=== PATIENT | male | born 1995 | race Caucasian/White ===

== ENCOUNTER 2017-10-08 09:39 | Emergency (ER) | payer OTHER ==
[~2017-10-08] VITALS: Ht 175.2 cm; Wt 88.5 kg
[~2017-10-08 09:39] MED LIST: ANUSOL-HC25 MG RC; MIRALAX POWDER17 G1 PO; MOTRIN400 MG PO; NAPROSYN500 MG PO; NKHM; TYLENOL W/CODEI1 TA2 PO
[2017-10-08 10:09] LABS: HEMATOCRIT 43.4 % (42.0-52.0); HEMOGLOBIN 14.7 g/dl (14.0-18.0); MEAN CELL VOLUME 83.8 fl (80.0-94.0); MEAN CORPUSCULAR HGB 28.4 pg (27.0-31.0); MEAN CORPUSCULAR HGB CONC 33.9 g/dl (33.0-37.0); MEAN PLATELET VOLUME 10.4 fl (9.6-12.3); PLATELET COUNT AUTOMATED 179 10*3/uL (130-400); RED BLOOD COUNT 5.18 10*6/uL (4.50-5.90); RED CELL DISTRI WIDTH 11.9 % (0-14.5); WHITE BLOOD COUNT 12.2 10*3/uL (4.8-10.8)
[2017-10-08 10:23] LABS: ALBUMIN 3.8 gm/dl (3.1-4.5); ALKALINE PHOSPHATASE 67 U/L (45-117); BUN 11 mg/dl (7-24); CHLORIDE 102 mmol/L (98-107); CREATININE 0.95 mg/dL (0.70-1.30); SGOT/AST 23 IU/L (3-35); SGPT/ALT 41 U/L (12-78); SODIUM 137 mmol/L (136-145); TOTAL PROTEIN 6.7 gm/dL (6.4-8.2)
[2017-10-08 10:27] LABS: PLATELET SUFFICIENCY NORMAL (NORMAL); TOTAL CELLS COUNTED 100 #CELLS
== END 2017-10-08 12:20 | disposition admitted as inpatient to this hospital (09) ==
LOC: ED 09:39
PROVIDERS: Nurse Practitioner Family
DX: K35.89 Other acute appendicitis (principal)

== ENCOUNTER 2017-10-08 11:33 | Inpatient (IN) | payer OTHER ==
[~2017-10-08] VITALS: Ht 175.3 cm; Wt 89.4 kg
--- NOTE | ~2017-10-08 | O ---
[place], [place] OPERATIVE NOTE NAME: KARLEY AMADO UNIT #: [id number] ROOM: 419 DOCTOR: LOC WALKER MD BIRTHDATE: [birth year] DOS: 10/09/2017 PREOPERATIVE DIAGNOSIS: Acute appendicitis. POSTOPERATIVE DIAGNOSIS: Acute appendicitis. PROCEDURE: Laparoscopic appendectomy. SURGEON: Loc Walker MD BUSINESS SOLUTION ANALYST: SOBEIDA. ANESTHESIA: General with endotracheal intubation. INDICATIONS: This is a 22-year-old gentleman admitted with abdominal pain and was found to have acute appendicitis. It was decided to take the patient to the operating room for the above-mentioned procedure. The procedure and its complications were explained to the patient in detail preoperatively. Complications that were discussed included but were not limited to bleeding, infection, hematoma/seroma/abscess formation, prolonged postoperative pain, and damage to lying vital structures. He agreed to proceed. DESCRIPTION OF PROCEDURE: After identifying the patient, the patient was brought to the operating suite and laid in the supine position. After general anesthesia was administered, a Beltrán catheter was introduced into the urinary bladder and the left upper extremity was stuck to the patient's side. The parts were then painted and draped in the usual sterile fashion. A time-out procedure was called. An incision in a semicircular fashion was made in the region below the umbilicus. The skin and the subcutaneous tissue were incised with the help of a knife. The fascia was grasped and incised vertically and 2 stay sutures with 0 Vicryl were taken. The peritoneum was opened and a 12 mm Naresh port was introduced and a pneumoperitoneum was created. Under direct vision, left lower quadrant incision of 10 mm and 5 mm incision was made in the suprapubic region and appropriate size ports were introduced. The patient was placed in a Trendelenburg, right side up position. The appendix was identified and was found to be acutely inflamed. It was from the surrounding structures with the help of electrocautery and then the mesoappendix and the base of the appendix was stapled across with the help of Endo-SINTIA vascular stapler. The appendix was then placed in an EndoCatch bag and removed from the peritoneal cavity and sent for histopathological diagnosis. Hemostasis was confirmed. Thereafter, the hypogastric/suprapubic and the left lower quadrant ports were removed and there was no bleeding seen. The umbilical port was removed and the pneumoperitoneum was decompressed. The fascial defect was approximated with the help of interrupted 0 Vicryl. The edges of the skin were infiltrated with 1% plain lidocaine and were approximated with the help of 4-0 Vicryl in a subcuticular running fashion. Dressings were placed. Beltrán catheter was removed. The patient was extubated uneventfully and brought back to the recovery room in stable fashion. There were no complications. Dr. Loc Walker, the attending surgeon, was present throughout the operating case. [place], [place] OPERATIVE NOTE NAME: KARLEY AMADO UNIT #: [id number] ROOM: 419 DOCTOR: LOC WALKER MD BIRTHDATE: [birth year] Loc Walker MD CM:OPRECORD:OPERATIVE NOTE [id number] [id number] LOC WALKER MD 10/09/17 1318 interface
[2017-10-08 08:00] VITALS: BP 114/38
[2017-10-08 12:15] VITALS: BP 143/55
[2017-10-08 16:00] VITALS: BP 115/58
[2017-10-08 20:00] VITALS: BP 126/43
[2017-10-09] VITALS (9 sets, daily range): BP systolic 105–126; BP diastolic 38–46
[2017-10-09 06:57] LABS: BASO % 0.3 % (0.0-1.0); EOS % 0.1 % (1.0-4.0); HEMATOCRIT 43.2 % (42.0-52.0); HEMOGLOBIN 14.2 g/dl (14.0-18.0); LYMPH # 0.6 10*3/uL (1.3-4.4); LYMPH % 6.9 % (27.0-41.0); MEAN CELL VOLUME 85.9 fl (80.0-94.0); MEAN CORPUSCULAR HGB 28.2 pg (27.0-31.0); MEAN CORPUSCULAR HGB CONC 32.9 g/dl (33.0-37.0); MEAN PLATELET VOLUME 10.6 fl (9.6-12.3); MONO # 0.8 10*3/uL (0.1-1.0); MONO % 8.4 % (3.0-9.0); NEUT # 7.6 10*3/uL (2.3-7.9); NEUT % 84.1 % (47.0-73.0); PLATELET COUNT AUTOMATED 165 10*3/uL (130-400); RED BLOOD COUNT 5.03 10*6/uL (4.50-5.90); RED CELL DISTRI WIDTH 12.2 % (0-14.5)
[2017-10-09 07:23] LABS: ALBUMIN 3.3 gm/dl (3.1-4.5); ALKALINE PHOSPHATASE 64 U/L (45-117); BUN 13 mg/dl (7-24); CHLORIDE 103 mmol/L (98-107); CHOLESTEROL 125 mg/dL (<200); CREATININE 1.15 mg/dL (0.70-1.30); FREE T4 1.17 ng/dl (0.76-1.46); HDL CHOLESTEROL 72 mg/dl (40-60); LDL CHOLESTEROL 39 mg/dL (9-159); POTASSIUM 3.7 mmol/L (3.5-5.1); SGOT/AST 19 IU/L (3-35); SODIUM 138 mmol/L (136-145); TOTAL PROTEIN 6.4 gm/dL (6.4-8.2); TRIGLYCERIDES 68 mg/dl (<150); VLDL CHOLESTEROL 14 mg/dL (6-40)
[2017-10-09 07:28] LABS: PHOSPHOROUS 2.6 mg/dL (2.5-4.9); SGPT/ALT 32 U/L (12-78)
[2017-10-09 08:48] LABS: VITAMIN D, 25-HYDROXY 20.1 ng/mL (30-100)
== END 2017-10-09 16:54 | disposition home or self-care (01) | DRG 343 ==
LOC: EDHOLD 11:33 → 4E 11:46
PROVIDERS: Registered Nurse
PROC: 0DTJ4ZZ Resection of Appendix, Percutaneous Endoscopic Approach (ICD-10-PCS; principal; 2017-10-09)
DX: K35.80 Unspecified acute appendicitis (principal); E83.51 Hypocalcemia; D72.829 Elevated white blood cell count, unspecified; R73.9 Hyperglycemia, unspecified; E80.6 Other disorders of bilirubin metabolism; Z79.899 Other long term (current) drug therapy; Z68.29 Body mass index [BMI] 29.0-29.9, adult

== ENCOUNTER 2019-11-13 14:08 | Emergency (ER) | payer OTHER ==
[~2019-11-13] VITALS: Ht 177.8 cm; Wt 94.3 kg
[2019-11-13] MEDS ORDERED: MEDROL DOSEPAK4 MG PO (17:29)
[2019-11-13] MEDS ORDERED: CYCLOBENZAPRINE5 M3 PO (17:29)
== END 2019-11-13 17:31 | disposition home or self-care (01) ==
LOC: ED 14:08
DX: S39.012A Strain of muscle, fascia and tendon of lower back, initial encounter (principal); X58.XXXA Exposure to other specified factors, initial encounter; Y93.89 Activity, other specified; Y92.89 Other specified places as the place of occurrence of the external cause; Y99.8 Other external cause status

== ENCOUNTER → 2020-06-23 | Outpatient (CLI) | payer OTHER ==
[~2020-06-23] MED LIST changes: +CYCLOBENZAPRINE5 M3 PO; +MEDROL DOSEPAK4 MG PO
[2020-06-23 18:28] LABS: HEMATOCRIT 47.1 % (42.0-52.0); MEAN CELL VOLUME 79.2 fl (80.0-94.0); MEAN CORPUSCULAR HGB 28.4 pg (27.0-31.0); MEAN CORPUSCULAR HGB CONC 35.9 g/dl (33.0-37.0); MEAN PLATELET VOLUME 10.8 fl (9.6-12.3); PLATELET COUNT AUTOMATED 246 10*3/uL (130-400); RED BLOOD COUNT 5.95 10*6/uL (4.50-5.90); RED CELL DISTRI WIDTH 11.8 % (0-14.5); RETICULOCYTE % 1.39 % (0.50-2.50); WHITE BLOOD COUNT 6.6 10*3/uL (4.8-10.8)
[2020-06-23 18:32] LABS: BILIRUBIN Negative (Negative); BLOOD Negative (Negative); CLARITY Clear (Clear); COLOR Yellow (Yellow); GLUCOSE Negative (Negative); KETONE 1+ (Negative); LEUKO ESTERASE Negative (Negative); NITRITE Negative (Negative); PH 6.5 (4.5-8.0); SPECIFIC GRAVITY 1.015 (1.001-1.030); UROBILINOGEN 0.2 E.U./dl (0.0-1.0)
[2020-06-23 18:39] LABS: EPITHELIAL CELLS 0-2; RBC 0-2 rbc/hpf (0-2); WBC 0-2 wbc/hpf (0-5)
[2020-06-23 18:40] LABS: BACTERIA TRACE
[2020-06-23 18:55] LABS: BASOPHILS 2 % (0-1); TOTAL CELLS COUNTED 100 #CELLS
[2020-06-23 18:56] LABS: PLATELET SUFFICIENCY NORMAL (NORMAL)
[2020-06-23 18:59] LABS: ALBUMIN 4.8 gm/dl (3.1-4.5); ALKALINE PHOSPHATASE 59 U/L (45-117); BUN 14 mg/dl (7-24); CHLORIDE 104 mmol/L (98-107); CHOLESTEROL 177 mg/dL (<200); CREATININE 0.93 mg/dL (0.70-1.30); GAMMA GLUTAMYL TRANSPEPTIDASE 26 U/L (15-85); HDL CHOLESTEROL 82 mg/dl (40-60); IRON 75 ug/dL (65-175); LDL CHOLESTEROL 84 mg/dL (9-159); POTASSIUM 3.4 mmol/L (3.5-5.1); SGOT/AST 16 IU/L (3-35); SGPT/ALT 34 U/L (12-78); SODIUM 140 mmol/L (136-145); T3 UPTAKE 36 % (31-39); THYROXINE (T4) TOTAL 10.3 ug/dl (4.5-12.1); TOTAL IRON BINDING CAPACITY 294 ug/dl (250-450); TRIGLYCERIDES 56 mg/dl (<150); URIC ACID 4.5 mg/dL (3.5-7.2); VLDL CHOLESTEROL 11 mg/dL (6-40)
[2020-06-23 19:06] LABS: THYROID STIM HORMONE (HS) 0.903 uIU/ml (0.358-4.75)
[2020-06-23 20:42] LABS: VITAMIN D, 25-HYDROXY 28.9 ng/mL (30-100)
[2020-06-24 07:05] LABS: TOTAL PROTEIN, SERUM 7.4 g/dL (6.0-8.5)
[2020-06-24 08:06] LABS: RHEUMATOID ARTHRITIS FACTOR <10.0 IU/mL (0.0-13.9)
[2020-06-24 09:51] LABS: FERRITIN 153.1 ng/mL (22.0-322.0)
[2020-06-24 12:07] LABS: ANTI-DSDNA ANTIBODIES 2 IU/mL (0-9)
[2020-06-24 14:08] LABS: A/G RATIO 1.7 (0.7-1.7); ALBUMIN 4.7 g/dL (2.9-4.4); ALPHA-1-GLOBULIN 0.2 g/dL (0.0-0.4); ALPHA-2-GLOBULIN 0.5 g/dL (0.4-1.0); GLOBULIN, TOTAL 2.7 g/dL (2.2-3.9); M-SPIKE Not Observed g/dL (Not Observed); PE INTERPRETATION Comment: (.)
== END | disposition home or self-care (01) ==
LOC: LAB 16:50
PROVIDERS: ATTEND Family Medicine
DX: R53.83 Other fatigue (principal); E78.5 Hyperlipidemia, unspecified; E55.9 Vitamin D deficiency, unspecified; Z79.899 Other long term (current) drug therapy